=== PATIENT | female | born 1965 | race African-American/Black ===

== ENCOUNTER 2020-05-17 14:06 | Emergency (ER) | payer OTHER ==
[~2020-05-17] VITALS: Ht 180.3 cm; Wt 75.0 kg
[2020-05-17 14:09] VITALS: BP 130/88
== END 2020-05-17 16:50 | disposition left against medical advice (07) ==
LOC: EMS 14:13
DX: F41.9 Anxiety disorder, unspecified (principal); F12.90 Cannabis use, unspecified, uncomplicated; F17.210 Nicotine dependence, cigarettes, uncomplicated
CPT/HCPCS: Z7502